=== PATIENT | male | born 1995 | race Hispanic/Latino ===

== ENCOUNTER 2025-03-28 09:53 | Emergency (ER) | payer SELFPAY ==
[~2025-03-28] VITALS: Ht 160 cm; Wt 56.2 kg
[2025-03-28] MEDS: TETRACAINE HCL 0.5% 4 ML OPHTH SOLN OP ONE (10:05)
--- NOTE | 2025-03-28 10:07 | ERN ---
General Chief Complaint: Eye Problems Stated Complaint: LT EYE PAIN Time Seen by MD: 09:56 Source: patient, family History of Present Illness Initial Comments PATIENT IS A 29-YEAR-OLD MALE COMING IN COMPLAINING OF LEFT EYE DISCOMFORT. PER PATIENT THIS BEGAN FOUR DAYS AGO. HAS A ABLE TO SEE THAT HAS BEEN PRESSURE BEHIND HIS EYE. Allergies: Coded Allergies: No Known Allergies (Unverified Allergy, Unknown, 03/28/25) Past Medical History Past Medical History: No Pertinent History Past Surgical History: None ROS Dictation CONSTITUTIONAL: NO CHILLS, NO FEVER, NO WEAKNESS, NO DIAPHORESIS, NO MALAISE. HEAD/FACE: NO SIGNS OF TRAUMA. EENT: NO EYE PAIN, NO BLURRED VISION, NO TEARING, NO DOUBLE VISION, NO EAR PAIN, NO EAR DISCHARGE, NO NOSE PAIN, NO NASAL CONGESTION, NO THROAT PAIN, NO THROAT SWELLING, NO MOUTH PAIN. RESPIRATORY: NO COUGH, NO ORTHOPNEA, NO SOB, NO STRIDOR, NO WHEEZING. CARDIOVASCULAR: NO CHEST PAIN, NO EDEMA, NO PALPITATIONS, NO SYNCOPE. GASTROINTESTINAL/ABDOMINAL: NO ABDOMINAL PAIN, NO CONSTIPATION, NO DIARRHEA, NO NAUSEA, NO VOMITING. GENITOURINARY: NO ABNORMAL DISCHARGE, NO DYSURIA, NO FREQUENT URINATION, NO HEMATURIA. NO COMPLAINTS OF PAIN IN THE GENITALS. MUSCULOSKELETAL: NO BACK PAIN, NO GOUT, NO JOINT PAIN, NO JOINT SWELLING, NO MUSCLE PAIN, NO MUSCLE STIFFNESS, NO NECK PAIN. INTEGUMENTARY: NO CHANGE IN COLOR, NO CHANGE IN HAIR/NAILS, NO DRYNESS, NO LESION, NO LUMPS, NO RASH. NEUROLOGICAL/PSYCH: NO ANXIETY, NOT DEPRESSED, NO EMOTIONAL PROBLEM, NO HEADACHE, NO NUMBNESS, NO PRE-EXISTING DEFICIT, NO HISTORY OF SEIZURES, NO TREMORS, NO WEAKNESS. HEMATOLOGIC/LYMPHATIC: NOT ANEMIC, NO HISTORY OF BLOOD CLOTS, NO APPARENT BL EEDING, NO BRUISING, GLANDS NOT SWOLLEN. ALL SYSTEMS NEGATIVE, EXCEPT NOTED. Physical Exam Physical Exam Dictation VITAL SIGNS: REVIEWED. GENERAL APPEARANCE: ALERT, ORIENTED X3, NO ACUTE DISTRESS, OBESE. HEAD AND FACE: NON-TRAUMATIC. PATIENT DISCOMFORT ON PALPATION IN THE LEFT MAXILLARY SINUS EYES: PERRL, PINK CONJUNCTIVAS, EYELID NO TRAUMA, ANTERIOR CHAMBER CLEAR. EARS: PINNAS INTACT AND NO SIGNS OF TRAUMA OR ERYTHEMA. EAR CANALS CLEAR AND NO DISCHARGE. TMS ERYTHEMA. NOSE: NO DISCHARGE, NO BLEEDING. THIS IS A TURBINATE SWELLING OROPHARYNX: MOUTH NORMAL, TEETH NO CARIES, TONGUE PINK. PHARYNX CLEAR, NO ERYTHEMA. TONSILS NO EXUDATES, NO ABSCESSES NOTED. MUCOUS MEMBRANE MOIST. NECK: SUPPLE, NON-TENDER, NO THYROMEGALY, NO MASSES, NO JVD, NO BRUITS. BREAST: DEFERRED. CHEST: NO TENDERNESS, NO CREPITUS, NO PARADOXICAL MOVEMENT, NO RETRACTIONS. LUNGS: CLEAR, WELL-VENTILATED, SYMMETRIC, NO RALES, NO WHEEZING, NO RHONCHI, NO STRIDOR, GOOD BREATH SOUNDS BILATERALLY. HEART: REGULAR RATE, REGULAR RHYTHM, NO MURMUR, NO GALLOPS. VASCULAR: NO PERIPHERAL EDEMA. ABDOMEN: SOFT, POSITIVE BOWEL SOUNDS, NONDISTENDED, NO GUARDING, NONTENDER, NO REBOUND, NO MASSES NO HEPATOMEGALY, NO SPLENOMEGALY, NO HUSTON'S SIGN, NO HERNI . RECTAL: DEFERRED. GENITAL: DEFERRED. NEUROLOGICAL: NORMAL SPEECH, GROSS MOTOR FUNCTION INTACT, GROSS SENSORY FUNCTION INTACT. MUSCULOSKELETAL: NECK NONTENDER, FULL RANGE OF MOTION, BACK NONTENDER, FULL RANGE OF MOTION. EXTREMITIES: NONTENDER, FULL RANGE OF MOTION. SKIN: COLOR PINK, DRY, NO TURGOR, NO RASH, NO LACERATIONS, NO ABRASIONS, NO CONTUSIONS. LYMPHATICS: DEFERRED. Results Laboratory and Microbiology Labs Reviewed?: Yes MDM MDM: DIFFERENTIAL DIAGNOSIS: SINUSITIS, CONJUNCTIVITIS, RATIONALE: TESTS CONSIDERED AND ORDERED SECONDARY TO SHARED DECISION MAKING INCLUDE: PREVIOUS OUTSIDE RECORDS REVIEWED: OLD ER VISITS. RISK OF COMPLICATION AND/OR MORBIDITY OR MORTALITY OF PATIENT MANAGEMENT: NONE MEDICATIONS-PER MEDICATION RECONCILIATION NEED FOR HOSPITALIZATION: PATIENT DOES NOT MEET CRITERIA FOR HOSPITALIZATION. NEED FOR EMERGENCY MAJOR/MINOR SURGERY: NO PATIENT IS A 69-YEAR-OLD MALE COMING IN COMPLAINING OF LEFT EYE DISCOMFORT. PER PATIENT THE DISCOMFORT IS AROUND HIS LEFT EYE NOT ON THE EYE. VISUAL ACUITY IN THE WITHIN NORMAL LIMITS. ED Course Orders Procedure Category Date Status Time Tetracaine Hcl PHA 03/28/25 Complete (Pontocaine 0.5% 10:00 Visual Acuity Test CPOE 03/28/25 Transmitted (Er) 10:05 Fluorescein Sodium PHA 03/28/25 Complete ([id number] At) 10:49 Current Medications Medications (Trade) Dose Ordered Sig/Johnson Route PRN Reason Start Time Stop Time Status Last Admin Dose Admin Fluorescein Sodium (Zdxyf-P-Azmos At) 1 strip STK-MED ONCE .ROUTE 03/28/25 10:49 03/28/25 10:50 DC Tetracaine HCl (Pontocaine 0.5% Ophth Soln) 2 drop ONCE ONCE OP 03/28/25 10:00 03/28/25 10:01 DC 03/28/25 10:05 Vital Signs Date Time Temp Pulse Resp B/P (MAP) Pulse Ox O2 Delivery O2 Flow Rate FiO2 03/28/25 10:14 98.1 73 20 103/70 99 Room Air* 0 21 03/28/25 09:56 98.1 73 20 103/70 99 Room Air DX & DISP Disposition: Discharge Departure Impression: Primary Impression: Sinusitis Condition: Stable Scripts Loratadine (Loratadine) 10 Mg Tablet 1 TAB PO DAILY for allergy symptoms for 30 Days, #30 TAB 0 Refills Prov: GOLDIE IRENE MD 03/28/25 Fluticasone Propionate (Flonase Nasal Morenci) 50 Mcg/Actuation Morenci 2 SPRAY NS DAILY for 30 Days, #16 GM 0 Refills Prov: GOLDIE IRENE MD 03/28/25 Amoxicillin/Potassium Clav (Amox Tr-K Clv 875-125 mg Tab) 875 Mg-125 Mg Tablet 1 TAB PO BID for 10 Days, #20 TAB 0 Refills Prov: GOLDIE IRENE MD 03/28/25 Additional Instructions: FOLLOW-UP WITH PRIMARY CARE PROVIDER IN 1 TO 2 DAYS. TAKE MEDICATIONS DIRECTED HERE IN THE EMERGENCY ROOM. OKAY TO CONTINUE HOME MEDICATIONS UNLESS OTHERWISE DISCUSSED DURING YOUR VISIT IN THE EMERGENCY ROOM TODAY. RETURN TO YOUR NEAREST EMERGENCY ROOM IF SYMPTOMS WORSEN OR IF THERE IS NO IMPROVEMENT. CALL 911 IF YOU NEED IMMEDIATE ASSISTANCE. TAKE TYLENOL [id number] NEEDED AND IF NO CONTRAINDICATIONS ARE PRESENT. INCREASE ORAL HYDRATION. A WOUND CULTURE OR URINE CULTURE WAS ORDERED HERE IN THE EMERGENCY ROOM DEPARTMENT PLEASE FOLLOW-UP WITH PRIMARY CARE PROVIDER AND ADVISE THEM TO GET REPORTS FROM OUR FACILITY. IF YOU HAD ANY ONESIMO WRAP/SPLINTS THAT WERE APPLIED HERE, PLEASE DO NOT REMOVE THEM UNTIL YOU SEE YOUR PRIMARY CARE OR SPECIALTY. REFERRALS: Referrals: SELF,REFERRAL (PCP) NAVI ESPARZA MD Time of Disposition: 10:56 GOLDIE IRENE MD Mar 28, 2025 10:07
--- NOTE | 2025-03-28 10:13 | NUR ---
VISUAL ACUITY L EYE 20/20 R EYE 20/20
[2025-03-28] MEDS ORDERED: FLUT16H NS (10:57)
[2025-03-28] MEDS ORDERED: AMOX1TAB16 PO (10:57)
[2025-03-28] MEDS ORDERED: LORA10TA7 PO (10:57)
[2025-03-28] MEDS: FLUORESCEIN SODIUM 1 STRIP STRIP OP ONE (11:00)
[2025-03-28] MEDS: FLUORESCEIN SODIUM 1 STRIP STRIP ONE (11:00)
[2025-03-28 11:09] VITALS: BP 109/66; PULSE 77; RESP 20; TEMP 98.1; O2SAT 99
== END 2025-03-28 11:14 | disposition home or self-care (01) ==
LOC: EDH 09:53
DX: J32.9 Chronic sinusitis, unspecified (principal)
CPT/HCPCS: 99283